=== PATIENT | male | born 1960 | race Caucasian/White ===

== ENCOUNTER → 2021-11-20 | Outpatient (CLI) | payer OTHER, MEDICARE, SELFPAY ==
[2021-11-20 16:05] LABS: Creatinine, Serum 0.98 mg/dL (0.70-1.30); EST Glomerular Filtration Rate 83 mL/min (>60); Est Glom Filt Rate - Afr Amer 101 mL/min (>60)
== END | disposition home or self-care (01) ==
PROVIDERS: Referring Provider Surgery Trauma Surgery; Visit Provider Surgery Trauma Surgery
DX: I73.9 Peripheral vascular disease, unspecified (principal); I72.3 Aneurysm of iliac artery
CPT/HCPCS: 36415; 82565

== ENCOUNTER → 2021-11-28 | Outpatient (CLI) | payer OTHER, MEDICARE, SELFPAY ==
--- NOTE | 2021-11-28 17:32 | CT_ITS ---
STUDY: CTA OF THE ABDOMINAL AORTA AND BILATERAL LOWER EXTREMITIES REASON FOR EXAM: Male, 61 years old. AAA, iliac aneurysm, atherosclerosis with claudication. RADIATION DOSAGE (If Supplied By Facility): CTDIvol = ( 8.54 ) mGy, DLP = ( 946.12 ) mGycm TECHNIQUE: Axial CT angiography multi-detector data acquisition was obtained from the dome of the liver to the level of the ankles following intravenous administration of IV 100mL Isovue-300. Axial images and MIP images were reconstructed from the axial data set. Post-processing of the angiographic images was performed, with multiplanar reformation and 3D reconstruction. Individualized dose optimization techniques were used for this CT. TECHNICAL QUALITY: Good COMPARISON: None. Descriptors of Narrowing: None (0%) Mild (< 50%) Moderate (50-70%) Severe (70-90%) Subtotal/Total Occlusion (90-100%) Non-Evaluable (technically non-diagnostic FINDINGS: Coronary artery calcification. Diffuse fatty infiltration of the liver. Scattered sigmoid diverticula. Abdominal aorta: Seizure for infrarenal abdominal aortic aneurysm with a transverse dimension of 4.2 cm. There is evidence of mural thrombus. Celiac and superior mesenteric arteries: No demonstrated narrowing. Inferior mesenteric artery: No demonstrated narrowing. Right renal artery(arteries): No demonstrated narrowing. Left renal artery(arteries): No demonstrated narrowing. Right common iliac artery: Aneurysmal dilatation of the right common iliac artery with a transverse dimension of 3.5 cm. There is evidence of mural thrombus. Right external iliac artery: Atherosclerotic calcific plaques. Right internal iliac artery: No demonstrated narrowing. Left common iliac artery: Mild atherosclerotic calcific plaques. Left external iliac artery: No demonstrated narrowing. Left internal iliac artery: No demonstrated narrowing. RIGHT LOWER EXTREMITY Right common femoral artery: Occluded at its origin. Right profundus femoris: No demonstrated narrowing. Right superficial femoral: Occluded at its origin. Vascular stent is seen in the distal portion of the superficial femoral artery. Right popliteal artery: A vascular stent is seen in the popliteal artery. The popliteal artery is occluded. Right tibioperoneal trunk: Tibioperoneal trunk is patent with calcific plaques. Right anterior tibial artery: Diffuse atherosclerotic plaque formation with multiple areas of narrowing. Right posterior tibial artery: Calcific plaques at the origin of the posterior tibial artery. Right peroneal artery: No demonstrated narrowing. LEFT LOWER EXTREMITY Left common femoral artery: No demonstrated narrowing. Left profundus femoris: No demonstrated narrowing. Left superficial femoral: No demonstrated narrowing. Left popliteal artery: No demonstrated narrowing. Left tibioperoneal trunk: No demonstrated narrowing. Left anterior tibial artery: Diffuse atherosclerotic plaque formation. Poor flow. Left posterior tibial artery: No demonstrated narrowing. Left peroneal artery: No demonstrated narrowing. CT/CTA Abd w/Runoff W/WO Contrast IMPRESSION: Infrarenal abdominal aortic aneurysm as described. Aneurysmal dilatation of the right common iliac artery. 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 Patent right posterior tibial and peroneal arteries. Electronically Signed: Ezio Ly MD at 11:11 EDT ,
== END | disposition home or self-care (01) ==
PROVIDERS: Visit Provider Surgery Trauma Surgery
DX: I73.9 Peripheral vascular disease, unspecified (principal); I71.4 Abdominal aortic aneurysm, without rupture
CPT/HCPCS: 75635; Q9967